=== PATIENT | male | born 1950 | race Caucasian/White ===

== ENCOUNTER → 2016-09-01 | Outpatient (CLI) | payer MEDICARE ==
[~2016-09-01] MED LIST: LISI40TA; LOVA10TA; METO-272
--- NOTE | 2016-09-01 10:36 | Diagnostic Imaging Report ---
PROCEDURE: CT head without contrast. TECHNIQUE: Multiple contiguous axial images were obtained through the brain without the use of intravenous contrast. INDICATION: Confusion. FINDINGS: There is encephalomalacia in the left parietal lobe extending to the left temporal lobe spanning approximately 40% of the left MCA territory compatible with an old infarct. There is also hypodense 1 cm lesion in the subcortical white matter in the right frontal lobe favored to be related to an old infarct as well. There is no hydrocephalus. No extra-axial fluid collection or hemorrhage. No brain parenchymal hemorrhage. The calvarium, and the orbits appear grossly unremarkable. There is partial opacification in the posterior ethmoidal air cells. The other paranasal sinuses visualized portions appear clear. IMPRESSION: No intracranial hemorrhage. Dictated by: Dictated on workstation # [id number]
== END ==
LOC: RAD 10:08
PROVIDERS: ATTEND Nurse Practitioner Adult Health
DX: R41.0 Disorientation, unspecified (principal); Z86.73 Personal history of transient ischemic attack (TIA), and cerebral infarction without residual deficits
CPT/HCPCS: 70450

== ENCOUNTER → 2017-11-13 | Outpatient (CLI) | payer MEDICARE | END | disposition home or self-care (01) | LOC: PREOP 05:36 | PROVIDERS: ATTEND Specialist | DX: Z01.818 Encounter for other preprocedural examination (principal) ==

== ENCOUNTER → 2017-11-21 | Outpatient (CLI) | payer MEDICARE | LOC: PREOP 05:39 | PROVIDERS: ATTEND Specialist | DX: Z01.818 Encounter for other preprocedural examination (principal) ==

== ENCOUNTER 2018-08-29 06:16 | Outpatient (CLI) | payer MEDICARE ==
[~2018-08-29] VITALS: Ht 182.9 cm; Wt 90.9 kg
[2018-08-29] MEDS ORDERED: ATOR40TA70 PO (10:30)
[2018-08-29] MEDS ORDERED: ASPI-808 PO (10:30)
[2018-08-29] MEDS ORDERED: AMLO10TA7 PO (10:30)
[2018-08-29] MEDS ORDERED: SILD100T PO (10:30)
[2018-08-29] MEDS ORDERED: DILT120T3 PO (10:30)
[2018-08-29] MEDS ORDERED: VNL75T PO (10:30)
== END 2018-08-29 10:37 | disposition home or self-care (01) ==
LOC: PREOP 06:16
PROVIDERS: ATTEND Specialist
DX: Z01.818 Encounter for other preprocedural examination (principal)

== ENCOUNTER 2018-08-30 09:34 | Day surgery (SDC) | payer MEDICARE ==
[~2018-08-30] VITALS: Ht 182.9 cm; Wt 90.9 kg
[~2018-08-30 09:34] MED LIST changes: +AMLO10TA7 PO; +ASPI-808 PO; +ATOR40TA70 PO; +DILT120T3 PO; +SILD100T PO; +VNL75T PO
[2018-08-30] MEDS: TETRACAINE 0.5% OPHTH SOLN 4 ML BTL (SINGLE DOSE ONLY) OU PRN ×4 (10:42→11:03)
[2018-08-30] MEDS ORDERED: TIMOLOL MALEATE 0.5% 5 ML (TIMOPTIC) BTL OU PRN (10:45)
[2018-08-30] MEDS ORDERED: LIDOCAINE PF 1% 2 ML AMP IR PRN (10:45)
[2018-08-30] MEDS ORDERED: POVIDONE (BETADINE) OPHTH SOLN 5% 30 ML OP ONE (10:45)
[2018-08-30] MEDS ORDERED: MOXIFLOXACIN OPHTH SOLN 5 MG/ML 0.3 ML SYRINGE OP ONE (10:45)
[2018-08-30 10:47] VITALS: BP 152/77
[2018-08-30] MEDS: CYCLOPENTOLATE 1% (CYCLOGYL) 2 ML DROPS OP SCH ×3 (10:51→11:03)
[2018-08-30] MEDS: PHENYLEPHRINE 10% OPHTH (NEO-SYN) 5 ML BTL OU SCH ×3 (10:51→11:04)
[2018-08-30] MEDS ORDERED: MIDAZOLAM 2 MG/2 ML (VERSED) VIAL ONE (11:34)
--- NOTE | 2018-08-30 11:42 | Ophthalmologist Pre-Op Note ---
Pre-Operative Progress Note H&P Reviewed The H&P was reviewed, patient examined and no changes noted. Date H&P Reviewed: Aug 30, 2018 Time H&P Reviewed: 11:42 Pre-Op Dx Cataract, Right Eye PIPPA GRULLON MD Aug 30, 2018 11:42
[2018-08-30] MEDS ORDERED: acetaZOLAMIDE ER 500 MG CAP (DIAMOX SEQUELS) PO ONE (12:00)
--- NOTE | 2018-08-30 12:12 | Ophthalmology Operative Report ---
Cataract removal/placement IOL PREOPERATIVE DIAGNOSIS: Cataract Right Eye POSTOPERATIVE DIAGNOSIS: Cataract Right Eye PROCEDURE: Cataract removal and placement of posterior chamber implant, right eye SURGEON: Kapil Grullon ANESTHESIA: Topical with sedation COMPLICATIONS: None ESTIMATED BLOOD LOSS: Minimal DESCRIPTION OF PROCEDURE: After proper informed consent was obtained, the patient, a 67 male, was taken to the Operating Room and the right eye was anesthetized with tetracaine. The right eye was then prepped and draped in the usual manner. A wire lid speculum was placed. A paracentesis was made at the left hand position. Preservative free lidocaine was injected into the anterior chamber followed by viscoelastic. A clear corneal incision was made in the temporal position. A capsulorrhexis was preformed and the central nuclear and cortical material were removed. The posterior capsule was polished and David [id number] 19.5 IOL was placed into the capsular bag. The residual viscoelastic was aspirated and balanced saline solution was injected into the anterior chamber. Moxifloxacin was injected into the anterior chamber. The wound was checked and found to be water tight. The patient tolerated the procedure well without complications. KAPIL GRULLON MD Aug 30, 2018 12:12
[2018-08-30 12:21] VITALS: BP 134/74
--- NOTE | 2018-08-30 12:53 | Anesthesia-General Post-Op ---
MAC Patient Condition Mental Status/LOC: Same as Preop Cardiovascular: Satisfactory Nausea/Vomiting: Absent Respiratory: Satisfactory Pain: Controlled Complications: Absent Post Op Complications Complications None Follow Up Care/Instructions Patient Instructions None needed. Anesthesiology Discharge Order Discharge Order Patient is doing well, no complaints, stable vital signs, no apparent adverse anesthesia problems. No complications reported per nursing. NADYA KENNEDY CRNA Aug 30, 2018 12:53
== END 2018-08-30 12:22 | disposition home or self-care (01) ==
LOC: SDC 09:34
PROVIDERS: ATTEND Specialist
DX: H25.11 Age-related nuclear cataract, right eye (principal); I10 Essential (primary) hypertension; F17.210 Nicotine dependence, cigarettes, uncomplicated; I69.328 Other speech and language deficits following cerebral infarction; G57.93 Unspecified mononeuropathy of bilateral lower limbs; Z79.82 Long term (current) use of aspirin; Z79.899 Other long term (current) drug therapy

== ENCOUNTER 2018-09-03 05:36 | Outpatient (CLI) | payer MEDICARE | END 2018-09-03 10:36 | disposition home or self-care (01) | LOC: PREOP 05:36 | PROVIDERS: ATTEND Specialist | DX: Z01.818 Encounter for other preprocedural examination (principal) ==

== ENCOUNTER 2018-09-04 08:30 | Day surgery (SDC) | payer MEDICARE ==
[~2018-09-04] VITALS: Ht 182.9 cm; Wt 90.9 kg
[2018-09-04 08:33] VITALS: BP 172/76
[2018-09-04] MEDS ORDERED: POVIDONE (BETADINE) OPHTH SOLN 5% 30 ML OP ONE (08:45)
[2018-09-04] MEDS ORDERED: TIMOLOL MALEATE 0.5% 5 ML (TIMOPTIC) BTL OU PRN (08:45)
[2018-09-04] MEDS ORDERED: LIDOCAINE PF 1% 2 ML AMP IR PRN (08:45)
[2018-09-04] MEDS ORDERED: MOXIFLOXACIN OPHTH SOLN 5 MG/ML 0.3 ML SYRINGE OP ONE (08:45)
[2018-09-04] MEDS: TETRACAINE 0.5% OPHTH SOLN 4 ML BTL (SINGLE DOSE ONLY) OU PRN ×4 (09:00→09:27)
[2018-09-04] MEDS: PHENYLEPHRINE 10% OPHTH (NEO-SYN) 5 ML BTL OU SCH ×3 (09:14→09:27)
[2018-09-04] MEDS: CYCLOPENTOLATE 1% (CYCLOGYL) 2 ML DROPS OP SCH ×3 (09:14→09:27)
--- NOTE | 2018-09-04 10:22 | Ophthalmologist Pre-Op Note ---
Pre-Operative Progress Note H&P Reviewed The H&P was reviewed, patient examined and no changes noted. Date H&P Reviewed: Sep 04, 2018 Time H&P Reviewed: 10:22 Pre-Op Dx Cataract, Left Eye PIPPA GRLULON MD Sep 04, 2018 10:22
[2018-09-04] MEDS ORDERED: MIDAZOLAM 2 MG/2 ML (VERSED) VIAL ONE (10:44)
--- NOTE | 2018-09-04 10:47 | Ophthalmology Operative Report ---
Cataract removal/placement IOL PREOPERATIVE DIAGNOSIS: Cataract Left Eye POSTOPERATIVE DIAGNOSIS: Cataract Left Eye PROCEDURE: Cataract removal and placement of posterior chamber implant, left eye SURGEON: Kapil Grullon ANESTHESIA: Topical with sedation COMPLICATIONS: None ESTIMATED BLOOD LOSS: Minimal DESCRIPTION OF PROCEDURE: After proper informed consent was obtained, the patient, a 67 male, was taken to the Operating Room and the left eye was anesthetized with tetracaine. The left eye was then prepped and draped in the usual manner. A wire lid speculum was placed. A paracentesis was made at the left hand position. Preservative free lidocaine was injected into the anterior chamber followed by viscoelastic. A clear corneal incision was made in the temporal position. A capsulorrhexis was preformed and the central nuclear and cortical material were removed. The posterior capsule was polished and an David 20.0 AU00T0 was placed into the capsular bag. The residual viscoelastic was aspirated and balanced saline solution was injected into the anterior chamber. Moxifloxacin was injected into the anterior chamber. The wound was checked and found to be water tight. The patient tolerated the procedure well without complications. KAPIL GRULLON MD Sep 04, 2018 10:47
[2018-09-04 10:57] VITALS: BP 149/79
--- NOTE | 2018-09-04 13:14 | Anesthesia-General Post-Op ---
MAC Patient Condition Mental Status/LOC: Same as Preop Cardiovascular: Satisfactory Nausea/Vomiting: Absent Respiratory: Satisfactory Pain: Controlled Complications: Absent Post Op Complications Complications None Follow Up Care/Instructions Patient Instructions None needed. Anesthesiology Discharge Order Discharge Order Patient is doing well, no complaints, stable vital signs, no apparent adverse anesthesia problems. No complications reported per nursing. JONNY BANKS CRNA Sep 04, 2018 13:14
[2018-09-04] MEDS ORDERED: acetaZOLAMIDE ER 500 MG CAP (DIAMOX SEQUELS) PO ONE (13:30)
== END 2018-09-04 10:57 | disposition home or self-care (01) ==
LOC: SDC 08:30
PROVIDERS: ATTEND Specialist
DX: H25.12 Age-related nuclear cataract, left eye (principal); I10 Essential (primary) hypertension; G62.9 Polyneuropathy, unspecified; F17.210 Nicotine dependence, cigarettes, uncomplicated; Z86.73 Personal history of transient ischemic attack (TIA), and cerebral infarction without residual deficits; Z79.82 Long term (current) use of aspirin; Z79.899 Other long term (current) drug therapy